=== PATIENT | male | born 1980 | race Two or more races ===

== ENCOUNTER 2020-10-30 12:37 | Outpatient (REF) | payer OTHER, SELFPAY ==
[2020-10-30 14:03] LABS: Cholesterol 228 mg/dL; HDL Cholesterol 30 mg/dL; LDL Cholesterol Calculated 132 mg/dl; Triglycerides 330 mg/dL
== END 2020-10-30 12:38 | disposition home or self-care (01) ==
LOC: HO.LAB 12:37
PROVIDERS: PCP Internal Medicine; Visit Provider Internal Medicine Cardiovascular Disease
DX: E78.5 Hyperlipidemia, unspecified (principal)
CPT/HCPCS: 36415; 80061

== ENCOUNTER → 2021-11-28 13:35 | Outpatient (REF) | payer OTHER, SELFPAY ==
--- NOTE | 2021-11-28 13:45 | CA_ITS ---
Transthoracic Echocardiogram Patient (Last, First, Middle): Albert Montes, Gender: Male Date of : 1980 Age: 41 Procedure Date: 11/28/2021 Procedure Type: Transthoracic Echocardiogram Location: OP Height: 177.8 cm Weight: 102.51 kg BSA: 2.20 m2 Heart Rate: bpm BP: 126 / 80 mmHg Purchasing Department Clerk: YR/TO Referring MD: Melchor Johns MD Batch Heat Treat Operator: Sridhar Ray MD Symptoms: E11.9 TYPE 11 DM, E78.5 HYPERLIPIDEMIA,I10 HTN R93.1 ABNORMA Study Quality: Fair ECG Rhythm: Sinus Conclusions: - Essentially normal study Findings Left Ventricle Normal left ventricular size, thickness, and systolic function. The visually estimated ejection fraction is between 55-60%. Spectral Doppler is indicative of an impaired relaxation filling pattern. E/E prime ratio is <8, consistent with normal filling pressures. Right Ventricle Normal right ventricular cavity size and systolic function. Atria Both atria are normal in size. There is no evidence of interatrial shunt. Aortic Valve The aortic valve structure and function is likely normal. There is no aortic valve stenosis. There is no aortic valve regurgitation. Mitral Valve Normal mitral valve structure and function. There is trace mitral valve regurgitation. There is no mitral valve stenosis. Pulmonic Valve The pulmonic valve was not well visualized. Tricuspid Valve Likely normal tricuspid valve structure and function. There is trace tricuspid valve regurgitation. calculated gradient across right atrium right ventricle is within normal limits. IVC is not well visualized, although appears that RV systolic pressure would be within normal limits. Great Vessels All visible segments of the aorta are normal in size. The pulmonary artery was not well visualized. Venous The inferior vena cava was not well visualized. Pericardium/Pleural There is no evidence of pericardial effusion. Prior Study Comparison no previous study in the last 5 years for comparison Measurements 2D Linear Measurements IVSd: 0.77 0.6-0.9/0.6-1.0 cm LVIDd: 4.72 3.9-5.3/4.2-5.9 cm LVIDd Index: 2.15 2.4-3.2/2.2-3.1 cm/m2 LVIDs: 3.43 2.0-3.6 cm LVPWd: 0.82 0.7-1.1 cm LA Diam: 3.60 2.7-3.8/3.0-4.0 cm LAIDs Index: 1.64 1.5-2.3 cm/m2 LV Mass: 152.18 67-162/88-224 g LV Mass Index: 69.17 43-95/49-115 g/m2 LVOT Diam: 2.30 3.0+(-)1.3 cm 2D Systolic Function EF 4C: 54.50 >55% EF 2C: 55.80 >55% EF BiP: 55.00 >55% Mitral Valve MV Pk E: 0.61 MV PK A: 0.74 MV Decel Time: 115.00 E/A: 0.80 E'Lateral: 10.30 E/E' Lat: 5.90 PHT: 34.00 MVA PHT: 6.47 Decel [place]: 5.25 Aortic Valve AoV Pk Ahsan: 1.35 AoV Mn Ahsan: 1.02 AoV VTI: 0.24 AoV Pk Grad: 7.00 Aov Mn Grad: 5.00 PIERCE Cont.VTI: 2.37 LVOT LVOT Pk Ahsan: 0.78 LVOT Mn Ahsan: 0.49 LVOT VTI: 0.13 LVOT Pk Grad: 2.00 LVOT Mn Grad: 1.00 LVOT Diam: 2.30 LVOT Area: 4.15 Diastolic Function MV Pk E: 0.61 MV Pk A: 0.74 E/A: 0.80 E' Laterial: 10.30 E/E' Lat: 5.90 Right Ventricle TAPSE (mm): 17.10 TVS' Ahsan: 10.40 Tricuspid Valve TR Pk Ahsan: 2.14 TR Pk Grad: 18.00 Great Vessels Aorta Sinus of Valsalva: 3.64 2.0-3.[address] [place]: 3.18 1.7-3.4 cm Ao Asc: 3.20 2.1-3.4 cm Ao Arch: 3.00 Updated in Other Vendor System with Status of Final Sridhar Ray MD electronically signed on 11/29/2021 2:14:58 PM with status of Final
== END ==
LOC: HO.CARD 13:35
PROVIDERS: PCP Internal Medicine; Visit Provider Internal Medicine
DX: E11.9 Type 2 diabetes mellitus without complications (principal); I10 Essential (primary) hypertension; E78.5 Hyperlipidemia, unspecified; R93.1 Abnormal findings on diagnostic imaging of heart and coronary circulation
CPT/HCPCS: 93306

== ENCOUNTER 2021-12-11 12:29 | Outpatient (REF) | payer OTHER, SELFPAY ==
[2021-12-11 13:39] LABS: Creatinine Urine 145.61 mg/dL; Microalbum/Creatinine Ratio Ur 28.1 ug/mg cr
[2021-12-11 13:49] LABS: Alanine Aminotransferase 32 U/L (0-40); Albumin Level 4.3 g/dL (3.5-5.0); Alkaline Phosphatase 59 U/L (39-117); Anion Gap 16 (12-20); Aspartate Amino Transferase 17 U/L (5-37); Bilirubin Total 0.7 mg/dL (0.0-1.0); Blood Urea Nitrogen 13 mg/dL (9-16); Calcium 9.9 mg/dL (8.4-10.2); Carbon Dioxide 22 mmol/L (22-29); Chloride 103 mmol/L (96-108); Cholesterol 210 mg/dL; Estimated Glomerular Filt Rate > 60; Glucose Fasting 242 mg/dL (60-99); HDL Cholesterol 28 mg/dL; LDL Cholesterol Calculated 115 mg/dl; Potassium 4.4 mmol/L (3.3-5.1); Sodium 137 mmol/L (135-145); Total Protein 7.7 g/dL (6.5-8.0); Triglycerides 337 mg/dL
== END 2021-12-11 12:30 | disposition home or self-care (01) ==
LOC: HO.LAB 12:29
PROVIDERS: PCP Internal Medicine; Visit Provider Internal Medicine
DX: E11.9 Type 2 diabetes mellitus without complications (principal); E78.5 Hyperlipidemia, unspecified; Z79.4 Long term (current) use of insulin
CPT/HCPCS: 36415; 80053; 80061; 82043

== ENCOUNTER → 2021-12-31 14:30 | Outpatient (REF) | payer OTHER, SELFPAY ==
--- NOTE | 2021-12-31 14:34 | ECG_ITS ---
Test Reason : R07.2 Blood Pressure : / mmHG Vent. Rate : 088 BPM Atrial Rate : 088 BPM P-R Int : 176 ms QRS Dur : 098 ms QT Int : 346 ms P-R-T Axes : 019 009 -04 degrees QTc Int : 418 ms Normal sinus rhythm with sinus arrhythmia Possible Inferior infarct (cited on or before 19-OCT-2014) Abnormal ECG When compared with ECG of 19-OCT-2014 23:54, No significant change was found Referred By: Josefina Sanchez Electronically Signed By:WICHO LAN MD
== END ==
LOC: HO.CARD 14:30
PROVIDERS: PCP Internal Medicine; Visit Provider Internal Medicine
DX: R07.2 Precordial pain (principal)
CPT/HCPCS: 93005

== ENCOUNTER → 2022-02-28 14:29 | Outpatient (BNVA) | payer OTHER, SELFPAY | PROVIDERS: PCP Internal Medicine; Referring Provider Internal Medicine; Visit Provider Internal Medicine Cardiovascular Disease | DX: R07.2 Precordial pain (principal); R00.2 Palpitations; Z79.899 Other long term (current) drug therapy | CPT/HCPCS: 99202 ==

== ENCOUNTER → 2022-03-25 09:48 | Outpatient (REF) | payer OTHER, SELFPAY ==
--- NOTE | 2022-03-25 09:52 | CA_ITS ---
Acquisition Time: 2022-03-25 10:19:09 Total Exercise Time: 00:05:55 Test Indications: CP, PALPITATIONS Medications: SEE CHART Protocol: CITLALY Max HR: 155 BPM 86% of Pred: 180 BPM Max BP: 138/098 mmHG Max Work Load: 7.0 METS Exercise stress test with exercise 5 min 55 sec of Citlaly protocol, achieving 85% MPHR with noted mild to mod sob with patient report that it feels like I am taking in too much air with request to stop, without arrythmia, with normotensive response to exercise, with baseline EKG showing inferior Q wave and T wave inversions leads III, aVF and mildly with V4-V6 which is present throughout test, without ST depressions noted. Test reviewed with Dr Ray Pt has no exercise induced ischemia, he does have decreased activity tolerance. Referred By: Sridhar Ray Overread By: OTF BAUTISTA
--- NOTE | 2022-03-25 09:52 | HM_ITS ---
* Total monitoring time 14 days and 22 hours. * Underlying rhythm is sinus. * Average rate 97/Min. Range 65 to 180/Min. About 40% the time, rate greater than 100/Min. * Rare supraventricular and ventricular ectopy with minimal burden. * During patient's symptoms of palpitations, rhythm was sinus tachycardia. MTDD
== END ==
LOC: HO.CARD 09:48
PROVIDERS: PCP Internal Medicine; Visit Provider Internal Medicine Cardiovascular Disease
DX: R07.2 Precordial pain (principal); R00.2 Palpitations
CPT/HCPCS: 93017; 93246

== ENCOUNTER → 2022-04-19 10:52 | Outpatient (BNVA) | payer OTHER, SELFPAY | PROVIDERS: PCP Internal Medicine; Visit Provider Internal Medicine Cardiovascular Disease | DX: R06.02 Shortness of breath (principal); R00.0 Tachycardia, unspecified | CPT/HCPCS: 99212 ==

== ENCOUNTER 2022-06-04 12:47 | Outpatient (REF) | payer OTHER, SELFPAY ==
[2022-06-04 14:33] LABS: Hematocrit 45.7 % (42.0-52.0); Hemoglobin 15.5 g/dl (14.0-18.0); Mean Corpuscular HGB Conc 33.9 g/dl (31.0-36.0); Mean Corpuscular Hemoglobin 29.6 pg (27.0-33.0); Mean Corpuscular Volume 87.4 fL (80.0-98.0); Mean Platelet Volume 11.2 fL (9.4-12.4); Platelet Count 232 X10*3/uL (160-400); Red Blood Count 5.23 X10*6/uL (4.60-5.80); Red Cell Distribution Width 11.9 % (11.0-16.0); White Blood Count 5.5 X10*3/uL (4.8-10.8)
[2022-06-04 14:37] LABS: INTERNATIONAL NORM RATIO 0.9 (0.9-1.1)
[2022-06-04 14:52] LABS: Anion Gap 15 (12-20); Blood Urea Nitrogen 13 mg/dL (9-16); Calcium 9.4 mg/dL (8.4-10.2); Carbon Dioxide 24 mmol/L (22-29); Chloride 102 mmol/L (96-108); Estimated Glomerular Filt Rate > 60; Glucose Random 210 mg/dL (60-115); Potassium 4.2 mmol/L (3.3-5.1); Sodium 137 mmol/L (135-145)
== END 2022-06-04 12:48 | disposition home or self-care (01) ==
LOC: HO.LAB 12:47
PROVIDERS: PCP Internal Medicine; Visit Provider Internal Medicine Cardiovascular Disease
DX: R07.2 Precordial pain (principal); E11.9 Type 2 diabetes mellitus without complications; R93.1 Abnormal findings on diagnostic imaging of heart and coronary circulation; Z79.4 Long term (current) use of insulin
CPT/HCPCS: 36415; 80048; 85027; 85610

== ENCOUNTER → 2022-08-27 10:22 | Outpatient (BNVA) | payer OTHER, SELFPAY | PROVIDERS: PCP Internal Medicine; Referring Provider Internal Medicine; Visit Provider Internal Medicine Cardiovascular Disease | DX: I25.10 Atherosclerotic heart disease of native coronary artery without angina pectoris (principal); I10 Essential (primary) hypertension; E11.9 Type 2 diabetes mellitus without complications; E78.5 Hyperlipidemia, unspecified; Z98.890 Other specified postprocedural states; Z79.4 Long term (current) use of insulin | CPT/HCPCS: 99212 ==

== ENCOUNTER 2022-10-18 12:36 | Outpatient (REF) | payer OTHER, SELFPAY ==
[2022-10-18 13:48] LABS: Cholesterol 217 mg/dL; HDL Cholesterol 31 mg/dL; LDL Cholesterol Calculated 127 mg/dl; Triglycerides 295 mg/dL
[2022-10-19 14:28] LABS: CRP High Sensitivity 1.3 mg/L
== END 2022-10-18 12:37 | disposition home or self-care (01) ==
LOC: HO.LAB 12:36
PROVIDERS: PCP Internal Medicine; Visit Provider Internal Medicine Cardiovascular Disease
DX: I25.10 Atherosclerotic heart disease of native coronary artery without angina pectoris (principal); E78.5 Hyperlipidemia, unspecified
CPT/HCPCS: 36415; 80061; 86141

== ENCOUNTER → 2022-11-28 11:04 | Outpatient (BNVA) | payer OTHER, SELFPAY | PROVIDERS: PCP Internal Medicine; Referring Provider Internal Medicine; Visit Provider Internal Medicine Cardiovascular Disease | DX: I25.10 Atherosclerotic heart disease of native coronary artery without angina pectoris (principal); I10 Essential (primary) hypertension | CPT/HCPCS: 93005; 99212 ==

== ENCOUNTER 2023-02-26 11:02 | Outpatient (REF) | payer OTHER, SELFPAY ==
[2023-02-26 11:18] LABS: MANUAL DIFF FLAG NO
[2023-02-26 11:38] LABS: Basophils Percent Auto 0.4 % (0-2); Eosinophils Absolute Auto 0.1 X10*3/uL (0.0-0.4); Eosinophils Percent Auto 1.8 % (0-4); Hematocrit 47.2 % (42.0-52.0); Hemoglobin 15.8 g/dl (14.0-18.0); Imm Gran Abs Auto 0.01 X10*3/uL (0.00-0.03); Imm Gran Pct Auto 0.1 % (0.0-0.4); Lymphocytes Absolute Auto 2.3 X10*3/uL (1.2-4.9); Lymphocytes Percent Auto 33.1 % (20-40); Mean Corpuscular HGB Conc 33.5 g/dl (31.0-36.0); Mean Corpuscular Hemoglobin 29.9 pg (27.0-33.0); Mean Corpuscular Volume 89.4 fL (80.0-98.0); Mean Platelet Volume 10.8 fL (9.4-12.4); Monocytes Absolute Auto 0.6 X10*3/uL (0.1-1.2); Monocytes Percent Auto 8.2 % (2-11); Neutrophils Absolute Auto 3.8 x10*3/uL (2.0-8.3); Neutrophils Percent Auto 56.4 % (45-73); Platelet Count 228 X10*3/uL (160-400); Red Blood Count 5.28 X10*6/uL (4.60-5.80); Red Cell Distribution Width 11.9 % (11.0-16.0); White Blood Count 6.8 X10*3/uL (4.8-10.8)
[2023-02-26 13:10] LABS: Alanine Aminotransferase 44 U/L (0-40); Albumin Level 4.3 g/dL (3.5-5.0); Alkaline Phosphatase 53 U/L (39-117); Anion Gap 15 (12-20); Aspartate Amino Transferase 23 U/L (5-37); Bilirubin Total 0.8 mg/dL (0.0-1.0); Blood Urea Nitrogen 13 mg/dL (9-16); Carbon Dioxide 25 mmol/L (22-29); Chloride 102 mmol/L (96-108); Estimated Glomerular Filt Rate > 60; Glucose Random 246 mg/dL (60-115); Potassium 3.9 mmol/L (3.3-5.1); Sodium 138 mmol/L (135-145); Total Protein 7.8 g/dL (6.5-8.0)
[2023-02-26 13:16] LABS: TSH reflex Free T4 2.01 uIU/mL (0.32-4.0); Vitamin D 25-OH Total 19.7 ng/mL (>30)
== END 2023-02-26 11:03 | disposition home or self-care (01) ==
LOC: HO.LAB 11:02
PROVIDERS: PCP Internal Medicine; Visit Provider Nurse Practitioner Family
DX: E11.9 Type 2 diabetes mellitus without complications (principal); Z79.4 Long term (current) use of insulin
CPT/HCPCS: 36415; 80053; 82043; 82306; 82607; 82746; 83036; 84443; 85025

== ENCOUNTER 2023-03-04 13:45 | Outpatient (AMB) | payer OTHER, SELFPAY ==
--- NOTE | 2023-03-04 13:51 | MHC.PC.OV ---
Vital Signs 03/04/23 13:52 Height 5 ft 10 in Weight 226 lb BMI 32.4 BP 130/82 Blood Pressure Location Lt brachial Position Sitting Intake Visit Reasons: 4m F/U DM Intake Note: Patient here for a 4 month follow up DM Personal Computer Network Engineer Required: No Accompanied by: Self / Same As Patient Allergies SHELLFISH Allergy (Unknown, Uncoded 03/04/23 13:55) ANAPHYLAXIS Medication List - Last Reconciled 03/04/23 by Josefina Sanchez MD amlodipine 10 mg PO DAILY 90 days aspirin 81 mg PO DAILY atorvastatin 40 mg PO BEDTIME ezetimibe (Zetia) 10 mg PO DAILY glipizide ER 10 mg PO BID 90 days insulin glargine (Lantus Solostar U-100 Insulin) 25 units (0.25 mL) subcut DAILY 90 days metformin ER 1,000 mg (2 x 500 mg) PO BID 90 days metoprolol succinate ER 50 mg PO DAILY pen needle, diabetic (BD Ultra-Fine Short Pen Needle) As directed Tobacco use date assessed: 10/25/22 Dental Screening Dental Screen Date: 03/04/23 Did you have a dental visit in the last 12 months?: Yes Did you have a dental problem in the last 6 months where you did not have access to dental care?: No Was dental information given to patient?: Patient has dentist HPI HPI Comments History of Present Illness Details This is a 42-year-old male with diabetes mellitus type 2 on long-term current use of insulin, hypertension, mixed hyperlipidemia and low vitamin-D that comes today for follow-up on his conditions. A1c not on goal and I will discontinue glipizide, increase Lantus and start him on Trulicity. Blood pressure stable. Last LDL was not on goal and this will be repeated. Vitamin-D is low and I will start him on supplements. Denies any chest pain or shortness of breath. [facility] Medical History (Updated 03/04/23 @ 14:11 by Josefina Sanchez MD) Class 1 obesity with body mass index (BMI) of 32.0 to 32.9 in adult Essential hypertension ARMEN (generalized anxiety disorder) Mild recurrent major depression Mixed hyperlipidemia Precordial chest pain Type 2 diabetes mellitus, with long-term current use of insulin Surgical History No pertinent past surgical history Family History Father Diabetes Mother Hypertension Social History Housing: House Alcohol intake: current Alcohol intake frequency: holidays/special occasions only Patient Tobacco Use Status: Never used Tobacco e-Cigarette/Vaping Use: Never Used Second Hand Smoke Exposure: No service: No Current occupational status: employed Current occupational exposures/hazards: No Cognitive needs: No Hearing needs: No Vision needs: Yes Questionnaire Thrive Questionnaire Date Thrive assessed: 10/25/22 ARMEN-7 AMB Questionnaire ARMEN-7 Date ARMEN - 7 assessed: 10/25/22 Source: Developed by Drs. Edwin Cleaning, Meredith Tate, Kai Patel and colleagues, with an educational bettie from [employer]. Review of Systems Const All systems reviewed & are unremarkable except as noted in HPI and below Eyes Reports no additional complaints, Denies change in vision and Denies other visual disturbances Card Denies chest pain at rest, Denies chest pain with activity, Denies edema, Denies irregular heart rhythm, Denies claudication, Denies dyspnea, Denies dyspnea on exertion, Denies orthopnea, Denies paroxysmal nocturnal dyspnea and Denies slow heart rate Resp Denies cough, Denies dyspnea and Denies dyspnea on exertion GI Denies abdominal pain, Denies change in bowel habits, Denies excessive flatus, Denies nausea and Denies vomiting Denies urinary hesitancy, Denies urinary incontinence and Denies urinary urgency Musc Denies abnormal gait, Denies atrophy, Denies deformity and Denies limited range of motion Skin/Breast Denies bleeding lesions, Denies changing lesions and Denies rash Neuro Denies abnormal gait and Denies lack of coordination Physical exam (Primary Care) Vital Signs: Last Vital Signs BP 130/82 03/04/23 13:52 BMI result Body Mass Index 32.4 Tobacco/Smoking Status: Tobacco use Status Tobacco use date assessed 10/25/22 10/25/22 10:15 Patient Tobacco Use Status Never used Tobacco 10/25/22 10:11 e-Cigarette/Vaping Use Never Used 10/25/22 10:11 Thrive Assessment: Date of Thrive Assessment Date Thrive assessed 10/25/22 10/25/22 10:15 Eyes General: appearance normal, both eyes and all related structures Eyelids: Yes eyelids normal Conjunctivae: conjunctivae normal Neck Neck: Yes normal visual inspection and Yes supple Resp Effort & Inspection: normal respiratory effort Auscultation: clear to auscultation bilaterally Cardio Jugular venous distension: no JVD Rate: regular rate Rhythm: regular rhythm Heart sounds: S1 normal heart sound present and S2 normal heart sound present Extrem General: Yes full ROM Assessment and Plan Assessment & Plan (1) Type 2 diabetes mellitus, with long-term current use of insulin: Code(s): E11.9 - Type 2 diabetes mellitus without complications; Z79.4 - termite helper (current) use of insulin Plan: Discontinue glipizide. Continue metformin. Start Trulicity. Increase Lantus from 26 units to 30 units. A1c goal is equal or less than 7%. Referred to Endocrinology. (2) Essential hypertension: Code(s): I10 - Essential (primary) hypertension Plan: Continue amlodipine. Blood pressure goal is equal or less than 130/80. (3) Mixed hyperlipidemia: Code(s): E78.2 - Mixed hyperlipidemia Plan: Continue statins. Repeat lipid panel. LDL goal is less than 70. (4) Hypovitaminosis D: Code(s): E55.9 - Vitamin D deficiency, unspecified Plan: Start vitamin-D supplements. Orders: Orders Lipid Panel Today E78.5 - Hyperlipidemia, unspecified Microalbumin, Random (w Creat) Today E11.9 - Type 2 diabetes mellitus without complications Comprehensive [place]. Panel Fast Today E11.9 - Type 2 diabetes mellitus without complications, Z79.4 - termite helper (current) use of insulin Referrals Endocrinology Referral E11.9 - Type 2 diabetes mellitus without complications, Z79.4 - care home (current) use of insulin Medications: New cholecalciferol (vitamin D3) 25 mcg PO DAILY 90 days 90 caps 1RF Changed From insulin glargine (Lantus Solostar U-100 Insulin) 25 units (0.25 mL) subcut DAILY 90 days 22.5 mL 1RF E11.9 - Type 2 diabetes mellitus without complications, Z79.4 - care home (current) use of insulin To insulin glargine (Lantus Solostar U-100 Insulin) 30 units (0.3 mL) subcut DAILY 90 days 27 mL 1RF E11.9 - Type 2 diabetes mellitus without complications, Z79.4 - termite helper (current) use of insulin Discontinued glipizide ER Discontinued Reason: Patient Completed Course 10 mg PO BID 90 days 180 tabs 1RF Coding Level of Care Code Est Pt Level 4 (99941) Diagnoses Type 2 diabetes mellitus, with long-term current use of insulin E11.9; Z79.4 Essential hypertension I10 Mixed hyperlipidemia E78.2 Hypovitaminosis D E55.9 Time Spent (min) 23
[2023-03-04 13:52] VITALS: BP 130/82; BMI 32.4
== END 2023-03-04 14:12 | disposition home or self-care (01) ==
PROVIDERS: Visit Provider Internal Medicine
DX: E11.9 Type 2 diabetes mellitus without complications (principal); Z79.4 Long term (current) use of insulin; I10 Essential (primary) hypertension; E55.9 Vitamin D deficiency, unspecified; E78.2 Mixed hyperlipidemia
CPT/HCPCS: 99214

== ENCOUNTER → 2023-04-08 08:03 | Outpatient (REF) | payer OTHER, SELFPAY ==
--- NOTE | 2023-04-08 08:05 | CA_ITS ---
Acquisition Time: 2023-04-08 08:55:11 Total Exercise Time: 00:10:00 Test Indications: CAD Medications: SEE H Protocol: CITLALY Max HR: 164 BPM 91% of Pred: 179 BPM Max BP: 170/090 mmHG Max Work Load: 11.4 METS Exercise stress test exercise 10 min of Citlaly protocol achieving 91% MPHR, without anginal symptoms, without arrhythmias, with normotensive response to exercise, without EKG changes. Referred By: Sridhar Ray Overread By: Marianela Rg
--- NOTE | 2023-04-08 08:05 | CA_ITS ---
Transthoracic Echocardiogram Patient (Last, First, Middle): Albert Montes, Gender: Male Date of : 1980 Age: 42 Procedure Date: 04/08/2023 Procedure Type: Transthoracic Echocardiogram Location: OP Height: 177.8 cm Weight: 101.61 kg BSA: 2.19 m2 Heart Rate: bpm BP: 128 / 80 mmHg Rn Clinical Trials: Referring MD: Sridhar Ray MD Material Cutter: Sridhar Ray MD Symptoms: I25.10 - Atherosclerotic heart disease of [place] coronary artery without... Study Quality: Adequate ECG Rhythm: Sinus Conclusions: - 1. Mildly reduced LV ejection fraction with LVEF of 45-50% with grade 1 diastolic dysfunction 2. Normal cardiac valvular Doppler 3. Normal RV systolic pressure 4. No pericardial effusion Findings Left Ventricle Normal left ventricular cavity size. There is normal left ventricular wall thickness. The left ventricular systolic function is mildly decreased. The visually estimated ejection fraction is between 45-50%. There is evidence of regional wall motion abnormalities. Spectral Doppler is indicative of an impaired relaxation filling pattern. E/E prime ratio is <8, consistent with normal filling pressures. Evidence suggests grade I (mild) diastolic dysfunction. Wall Motion Rest Echo Findings The inferoseptal wall, the basal inferior, and mid inferior segments are hypokinetic. All other scored wall segments showed normal motion. Right Ventricle Normal right ventricular cavity size and systolic function. Atria The left atrium is normal in size. There is no evidence of interatrial shunt. The right atrium is normal in size. Aortic Valve Normal aortic valve structure and function. There is no aortic valve stenosis. There is no aortic valve regurgitation. Mitral Valve Normal mitral valve structure and function. There is trace mitral valve regurgitation. There is no mitral valve stenosis. Pulmonic Valve The pulmonic valve is likely normal. There is trace pulmonic valve regurgitation. Tricuspid Valve Normal tricuspid valve structure. There is trace tricuspid valve regurgitation. The right ventricular systolic pressure is normal. The right ventricular systolic pressure is 23 mmHg. Normal right atrial pressure. There is no evidence of pulmonary hypertension. Great Vessels All visible segments of the aorta are normal in size. The pulmonary artery was not well visualized. There is no dilatation of the ascending aorta. Venous The inferior vena cava is normal in size and collapses greater than 50% with inspiration. Pericardium/Pleural There is no evidence of pericardial effusion. Prior Study Comparison Changes noted compared to prior study dated: 11/28/2021. LV systolic function is reduced Measurements 2D Linear Measurements IVSd: 1.08 0.6-0.9/0.6-1.0 cm LVIDd: 4.52 3.9-5.3/4.2-5.9 cm LVIDd Index: 2.06 2.4-3.2/2.2-3.1 cm/m2 LVIDs: 2.94 2.0-3.6 cm LVPWd: 1.10 0.7-1.1 cm Ao Root: 3.60 2.1-3.5 cm LA Diam: 4.10 2.7-3.8/3.0-4.0 cm LAIDs Index: 1.87 1.5-2.3 cm/m2 LV Mass: 216.75 67-162/88-224 g LV Mass Index: 98.97 43-95/49-115 g/m2 LVOT Diam: 2.20 3.0+(-)1.3 cm 2D Systolic Function EF 4C: 49.30 >55% EF 2C: 46.80 >55% EF BiP: 47.40 >55% Mitral Valve MV Pk E: 0.62 MV PK A: 0.73 MV Decel Time: 146.00 E/A: 0.80 E'Lateral: 10.30 E'Medial: 6.64 E/E' Med: 9.30 E/E' Lat: 6.00 PHT: 43.00 MVA PHT: 5.12 Decel [place]: 4.22 Aortic Valve AoV Pk Ahsan: 1.21 AoV Mn Ahsan: 0.80 AoV VTI: 0.27 AoV Pk Grad: 6.00 Aov Mn Grad: 3.00 PIERCE Cont.VTI: 2.11 LVOT LVOT Pk Ahsan: 0.71 LVOT Mn Ahsan: 0.51 LVOT VTI: 0.15 LVOT Pk Grad: 2.00 LVOT Mn Grad: 1.00 LVOT Diam: 2.20 LVOT Area: 3.80 Diastolic Function MV Pk E: 0.62 MV Pk A: 0.73 E/A: 0.80 E'Medial: 6.64 E/E' Med: 9.30 E' Laterial: 10.30 E/E' Lat: 6.00 Right Ventricle TAPSE (mm): 19.00 TVS' Ahsan: 9.00 Tricuspid Valve TR Pk Ahsan: 2.25 TR Pk Grad: 20.00 RA Press: 3.00 RVSP: 23.00 Great Vessels Aorta Ao Root-2D: 3.60 2.0-3.7 cm Ao Asc: 3.30 2.1-3.4 cm Pulmonary Valve PV Pk Ahsan: 1.08 Peak PV Grad: 5.00 Updated in Other Vendor System with Status of Final Sridhar Ray MD electronically signed on 04/09/2023 1:41:55 PM with status of Final
== END ==
LOC: HO.CARD 08:03
PROVIDERS: PCP Internal Medicine; Visit Provider Internal Medicine Cardiovascular Disease
DX: I25.10 Atherosclerotic heart disease of native coronary artery without angina pectoris (principal)
CPT/HCPCS: 93017; 93306

== ENCOUNTER → 2023-04-08 08:05 | Outpatient (BNV) | payer OTHER, SELFPAY | PROVIDERS: PCP Internal Medicine; Visit Provider Nurse Practitioner | DX: I25.10 Atherosclerotic heart disease of native coronary artery without angina pectoris (principal) | CPT/HCPCS: 93016; 93018; 93306 ==

== ENCOUNTER 2023-05-19 11:45 | Outpatient (REF) | payer OTHER, SELFPAY ==
[2023-05-19 13:14] LABS: Alanine Aminotransferase 38 U/L (0-40); Albumin Level 4.4 g/dL (3.5-5.0); Alkaline Phosphatase 62 U/L (39-117); Anion Gap 17 (12-20); Aspartate Amino Transferase 18 U/L (5-37); Bilirubin Total 0.6 mg/dL (0.0-1.0); Blood Urea Nitrogen 13 mg/dL (9-16); Calcium 9.7 mg/dL (8.4-10.2); Carbon Dioxide 23 mmol/L (22-29); Chloride 102 mmol/L (96-108); Cholesterol 125 mg/dL (<200); Estimated Glomerular Filt Rate > 60; Glucose Fasting 251 mg/dL (60-99); HDL Cholesterol 31 mg/dL (>40); LDL Cholesterol Calculated 57 mg/dL (<100); Potassium 3.9 mmol/L (3.3-5.1); Sodium 138 mmol/L (135-145); Total Protein 7.9 g/dL (6.5-8.0); Triglycerides 185 mg/dL (<150)
[2023-05-19 14:14] LABS: Creatinine Urine 131.39 mg/dL; Microalbum/Creatinine Ratio Ur 31.2 ug/mg cr (<30)
== END 2023-05-19 11:46 | disposition home or self-care (01) ==
LOC: HO.LAB 11:45
PROVIDERS: PCP Internal Medicine; Visit Provider Internal Medicine
DX: E11.9 Type 2 diabetes mellitus without complications (principal); E78.5 Hyperlipidemia, unspecified; Z79.4 Long term (current) use of insulin
CPT/HCPCS: 36415; 80053; 80061; 82043; 82570

== ENCOUNTER 2023-05-29 13:59 | Outpatient (AMB) | payer SELFPAY ==
[2023-05-29 14:25] VITALS: BP 130/82; PULSE 82; O2SAT 97; BMI 32.3
--- NOTE | 2023-05-29 14:25 | MHC.OFFVIS ---
Intake Vital Signs 05/29/23 14:25 Height 5 ft 10 in Weight 224 lb 13.944 oz BMI 32.3 BP 130/82 Blood Pressure Location Lt brachial Position Sitting Pulse 82 Pulse Oximetry (%) 97 Intake Visit Reasons: 6 mth f/up Intake Note: pt states minor left side chest discomfort feel like sometimes something is moving up and down. Excel Vba Developer Required: No Allergies SHELLFISH Allergy (Unknown, Uncoded 03/04/23 13:55) ANAPHYLAXIS Medication List - Last Reconciled 05/29/23 by Cindy Zuniga, MEHREEN-C amlodipine 10 mg PO DAILY 90 days aspirin 81 mg PO DAILY atorvastatin 40 mg PO BEDTIME dulaglutide (Trulicity) 0.75 mg (0.5 mL) subcut QWEEK 30 days ezetimibe (Zetia) 10 mg PO DAILY insulin glargine (Lantus Solostar U-100 Insulin) 35 units (0.35 mL) subcut DAILY 90 days metformin ER 1,000 mg (2 x 500 mg) PO BID 90 days metoprolol succinate ER 50 mg PO DAILY pen needle, diabetic (BD Ultra-Fine Short Pen Needle) As directed HPI 6 mth f/up HPI Details Albert is a 42-year-old male with past medical history of obesity, hypertension, hyperlipidemia, diabetes, coronary artery disease with complex RCA stenosis which is being managed medically. He presents for follow-up after recent echocardiogram and stress test. Today he reports he has been feeling well. He denies any chest discomfort at rest or with activity. He says his breathing is comfortable. No PND, orthopnea or edema. No presyncope, syncope, falls. Good activity tolerance. Taking meds as directed. COUNT INCLUDES THE [facility] Medical History Precordial chest pain ARMEN (generalized anxiety disorder) Mild recurrent major depression Class 1 obesity with body mass index (BMI) of 32.0 to 32.9 in adult Essential hypertension Type 2 diabetes mellitus, with long-term current use of insulin Mixed hyperlipidemia Surgical History No pertinent past surgical history Family History Father Diabetes Mother Hypertension Social History Housing: House Alcohol intake: current Alcohol intake frequency: holidays/special occasions only Patient Tobacco Use Status: Never used Tobacco e-Cigarette/Vaping Use: Never Used Second Hand Smoke Exposure: No service: No Current occupational status: employed Current occupational exposures/hazards: No Cognitive needs: No Hearing needs: No Vision needs: Yes Review of Systems Const All systems reviewed & are unremarkable except as noted in HPI and below ENT Denies dizziness Card Denies chest pain, Denies chest pain at rest, Denies chest pain with activity, Denies rapid heart rate, Denies pedal edema, Denies edema, Denies leg edema, Denies lightheadedness, Denies palpitations, Denies dyspnea, Denies dyspnea on exertion and Denies orthopnea Resp Denies cough, Denies dyspnea and Denies dyspnea on exertion GI Denies hematochezia and Denies change in stool character Musc Denies abnormal gait, Denies limited range of motion, Denies muscle cramps, Denies muscle weakness, Denies numbness, Denies radiating pain into limb, Denies stiffness and Denies tingling Neuro Denies abnormal gait, Denies dizziness, Denies numbness and Denies tingling Endo Denies palpitations Physical Exam Vital Signs: Last Vital Signs Pulse 82 05/29/23 14:25 BP 130/82 05/29/23 14:25 Pulse Ox 97 05/29/23 14:25 BMI result Body Mass Index 32.3 Const General: cooperative, healthy appearing, comfortable and no acute distress Orientation/consciousness: patient oriented x3 Neck Neck: Yes normal visual inspection Resp Effort & Inspection: normal respiratory effort Auscultation: clear to auscultation bilaterally, no crackles, no rales, no rhonchi and no wheezes Cardio Jugular venous distension: no JVD Rate: regular rate Rhythm: regular rhythm Heart sounds: S1 normal heart sound present, S2 normal heart sound present, no murmurs and no rubs Neuro General: patient oriented x3 Extrem General: Yes normal to inspection Psych Appearance: grossly normal Mental Status: mental status grossly normal Speech and movement: Normal speech and movement present Assessment & Plan Assessment & Plan (1) CAD (coronary artery disease): Code(s): I25.10 - Atherosclerotic heart disease of [place] coronary artery without angina pectoris Plan: History of chest discomfort, abnormal exercise stress test. He underwent cardiac catheterization 06/14/2022 showing subtotal occlusion of the right PLV at the ostium involving right PDA and RPL bifurcation with good left to right collaterals. This is being treated medically however if he continued to report anginal symptoms then bifurcation stenting of the PDA to PLV can be considered. Exercise stress test was done on 04/08/2023 with exercise 10 minutes, no anginal symptoms and no EKG changes of ischemia. Echocardiogram done 04/08/2023 showed EF 45-50%, grade 1 diastolic dysfunction. Prior known EF on echo 11/28/2021 was 55-60%. He has been maintained on amlodipine, metoprolol XL, aspirin, atorvastatin and Zetia. Labs done 05/19/2023 showed LDL 57. Today he reports no anginal symptoms and good activity tolerance. Signs and symptoms of angina reviewed with him. Cardiology follow-up in 6 months, sooner if needed. Emergency care if ever needed for concerning symptoms (2) Essential hypertension: Code(s): I10 - Essential (primary) hypertension Plan: Well controlled at this time. No med changes made (3) Mixed hyperlipidemia: Code(s): E78.2 - Mixed hyperlipidemia Plan: [place] LDL goal less than 70 in patient with CAD and diabetes. Labs 05/19/2023 showed LDL 57. Continue atorvastatin 40 mg daily and Zetia 10 mg daily. (4) Precordial chest pain: Code(s): R07.2 - Precordial pain Plan: Resolved at present Coding Level of Care Code Est Pt Level 3 (93738) Diagnoses CAD (coronary artery disease) I25.10 Essential hypertension I10 Mixed hyperlipidemia E78.2 Precordial chest pain R07.2 Time Spent (min) 24
== END 2023-05-29 14:52 | disposition home or self-care (01) ==
PROVIDERS: PCP Internal Medicine; Visit Provider Nurse Practitioner Family
DX: I25.10 Atherosclerotic heart disease of native coronary artery without angina pectoris (principal); I10 Essential (primary) hypertension; E78.2 Mixed hyperlipidemia; R07.2 Precordial pain
CPT/HCPCS: 99213

== ENCOUNTER → 2023-05-29 13:59 | Outpatient (BNVA) | payer OTHER, SELFPAY | PROVIDERS: PCP Internal Medicine; Visit Provider Nurse Practitioner Family | DX: I25.10 Atherosclerotic heart disease of native coronary artery without angina pectoris (principal); I10 Essential (primary) hypertension; R07.2 Precordial pain | CPT/HCPCS: 99212 ==

== ENCOUNTER 2023-10-30 12:52 | Outpatient (AMB) | payer OTHER, SELFPAY ==
[2023-10-30 12:54] VITALS: BP 130/86; BMI 30.6
--- NOTE | 2023-10-30 12:54 | MHC.PC.OV ---
Vital Signs 10/30/23 12:54 Height 5 ft 10 in Weight 213 lb BMI 30.6 BP 130/86 Blood Pressure Location Lt brachial Position Sitting Intake Visit Reasons: PE Intake Note: Patient here for a physical exam Community Engagement Representative Required: No Accompanied by: Self / Same As Patient Allergies SHELLFISH Allergy (Unknown, Uncoded 10/30/23 12:57) ANAPHYLAXIS Medication List - Last Reconciled 10/30/23 by Josefina Sanchez MD amlodipine 10 mg PO DAILY 90 days aspirin 81 mg PO DAILY atorvastatin 40 mg PO BEDTIME blood sugar diagnostic (FreeStyle Lite Strips) Use 1 test strip twice a day dulaglutide (Trulicity) 0.75 mg (0.5 mL) subcut QWEEK 30 days ezetimibe (Zetia) 10 mg PO DAILY insulin glargine (Lantus Solostar U-100 Insulin) 35 units (0.35 mL) subcut DAILY 90 days metformin ER 1,000 mg (2 x 500 mg) PO BID 90 days metoprolol succinate ER 50 mg PO DAILY pen needle, diabetic (BD Ultra-Fine Short Pen Needle) As directed Tobacco use date assessed: 10/30/23 Dental Screening Dental Screen Date: 10/30/23 Did you have a dental visit in the last 12 months?: No Did you have a dental problem in the last 6 months where you did not have access to dental care?: No Was dental information given to patient?: Patient has dentist HPI HPI Comments History of Present Illness Details This is a 43-year-old male with diabetes mellitus type 2 on long-term current use of insulin that comes for his physical exam. A1c elevated but he admits he was out of insurance and just restarted Trulicity about a month ago. I will increase Trulicity and decrease insulin. Last diabetic eye exam was 2023 as per patient. No chest pain or shortness of breath. [facility] Medical History (Updated 10/30/23 @ 13:22 by Josefina Sanchez MD) Precordial chest pain ARMEN (generalized anxiety disorder) Mild recurrent major depression Class 1 obesity with body mass index (BMI) of 32.0 to 32.9 in adult Essential hypertension Type 2 diabetes mellitus, with long-term current use of insulin Mixed hyperlipidemia Surgical History No pertinent past surgical history Family History Father Diabetes Mother Hypertension Social History Housing: House Alcohol intake: former Patient Tobacco Use Status: Never used Tobacco e-Cigarette/Vaping Use: Never Used Second Hand Smoke Exposure: No service: No Current occupational status: employed Current occupational exposures/hazards: No Cognitive needs: No Hearing needs: No Vision needs: Yes Questionnaire PHQ-9 Over the last 2 weeks, how often have you been bothered by any of the following problems? 1. Little interest or pleasure in doing things: not at all 2. Feeling down, depressed, or hopeless: not at all 3. Trouble falling or staying asleep, or sleeping too much: not at all 4. Feeling tired or having little energy: not at all 5. Poor appetite or overeating: not at all 6. Feeling bad about yourself - or that you are a failure or have let yourself or your family down: not at all 7. Trouble concentrating on things, such as reading the newspaper or watching television: not at all 8. Moving or speaking so slowly that other people could have noticed. Or the opposite - being so fidgety or restless that you have been moving around a lot more than usual: not at all 9. Thoughts that you would be better off or of hurting yourself in some way: not at all Total score: 0 Depression Screening Interpretation: Negative Depression Screening Done: Yes 83835 - PHQ-9 Billing: Yes Source: Developed by Drs. Edwin Cleaning, Meredith Tate, Kai Patel and colleagues, with an educational bettie from [employer]. Thrive Questionnaire Date Thrive assessed: 10/30/23 I am a: Patient What is your living situation today?: I have a steady place to live Within the past 12 months, did the food you bought not last and you didn't have the money to get more?: Never true Within the past 12 months, did you worry whether your food would run out before you got money to buy more?: Never true Do you have trouble paying for medicines?: No Do you have trouble getting transportation to medical appointments?: No Do you have trouble paying your heating and electricity bill?: No Do you have trouble taking care of your child, family member or friend?: No Do you have trouble with day-to-day activities such as bathing, preparing meals, shopping, managing finances, etc.?: No Are you currently unemployed and looking for a job?: No Are you interested in more education?: No Please select the resources that you would like help with: None Currently or been in a relationship where the following occur: no concerns reported THRIVE Score: 0 AUDIT C Alcohol Use Questionnaire (AUDIT-C) 1. How often do you have a drink containing alcohol?: Never Total Score: 0 Score Reviewed/Action Taken: No ARMEN-7 AMB Questionnaire ARMEN-7 Date ARMEN - 7 assessed: 10/30/23 Feeling nervous, anxious, or on edge: 0 = Not at all Not being able to stop or control worryin = Not at all Worrying too much about different things: 0 = Not at all Trouble relaxin = Not at all Being so restless that it is hard to sit still: 0 = Not at all Becoming easily annoyed or irritable: 0 = Not at all Feeling afraid as if something awful might happen: 0 = Not at all Total ARMEN-7 score (0-4 normal; 5-9 mild; 10-14 moderate; 15-21 severe): 0 Source: Developed by Drs. Edwin Cleaning, Meredith Tate, Kai Patel and colleagues, with an educational bettie from [employer]. ARMEN-7 Assessment Billing ARMEN-7 Assessment Tool: ARMEN-7 Assessment 91529 Review of Systems Const All systems reviewed & are unremarkable except as noted in HPI and below Eyes Reports no additional complaints, Denies change in vision and Denies other visual disturbances Card Denies chest pain at rest, Denies chest pain with activity, Denies edema, Denies irregular heart rhythm, Denies claudication, Denies dyspnea, Denies dyspnea on exertion, Denies orthopnea, Denies paroxysmal nocturnal dyspnea and Denies slow heart rate Resp Denies cough, Denies dyspnea and Denies dyspnea on exertion GI Denies abdominal pain, Denies change in bowel habits, Denies excessive flatus, Denies nausea and Denies vomiting Denies urinary hesitancy, Denies urinary incontinence and Denies urinary urgency Musc Denies abnormal gait, Denies atrophy, Denies deformity and Denies limited range of motion Skin/Breast Denies bleeding lesions, Denies changing lesions and Denies rash Neuro Denies abnormal gait, Denies behavioral changes, Denies confusion and Denies lack of coordination Psych Denies behavioral changes and Denies confusion Physical exam (Primary Care) Vital Signs: Last Vital Signs BP 130/86 10/30/23 12:54 BMI result Body Mass Index 30.6 Tobacco/Smoking Status: Tobacco use Status Tobacco use date assessed 10/30/23 10/30/23 13:03 Patient Tobacco Use Status Never used Tobacco 10/30/23 13:03 e-Cigarette/Vaping Use Never Used 10/30/23 13:03 PHQ-9: PHQ-9 Score PHQ-9: Total score 0 10/30/23 13:07 Depression Screening Interpretation: Negative Thrive Assessment: Date of Thrive Assessment Date Thrive assessed 10/30/23 10/30/23 13:03 Currently or been in a relationship where the following occur: no concerns reported Const General: No confusion Orientation/consciousness: patient oriented x3 and No confusion HENMT Head: Yes normal to inspection, Yes normocephalic and Yes atraumatic Ears: external ears normal Eyes General: appearance normal, both eyes and all related structures Eyelids: Yes eyelids normal Conjunctivae: conjunctivae normal Neck Neck: Yes normal visual inspection and Yes supple Resp Effort & Inspection: normal respiratory effort Auscultation: clear to auscultation bilaterally Cardio Jugular venous distension: no JVD Rate: regular rate Rhythm: regular rhythm Heart sounds: S1 normal heart sound present and S2 normal heart sound present GI Inspection: Yes normal to inspection Palpation (GI): Soft to palpation and nontender Auscultation: normal bowel sounds Skin General skin exam: no rashes or lesions noted Neuro General: patient oriented x3, no focal motor deficits and No confusion Extrem General: Yes full ROM Psych Appearance: grossly normal Results AMB Hemoglobin A1c AMB Hemoglobin A1c 9.5 % Last Edit by ROME Cueva on 10/30/23 13:04 Results Reviewed Results Reviewed: Laboratory Last Values Hgb A1c (Clinic) 9.5 % (4.0-6.0) H 10/30/23 12:53 Assessment and Plan Assessment & Plan (1) Physical exam: Code(s): Z00.00 - Encounter for general adult medical examination without abnormal findings Plan: Repeat in a year. (2) Type 2 diabetes mellitus, with long-term current use of insulin: Code(s): E11.9 - Type 2 diabetes mellitus without complications; Z79.4 - residential (current) use of insulin Plan: Continue metformin. Increase Trulicity. Decrease Lantus from 35 units to 10 units. A1c goal is equal or less than 7%. Orders: Orders AMB Hemoglobin A1c Today E11.9 - Type 2 diabetes mellitus without complications, Z79.4 - residential (current) use of insulin Lipid Panel Today E11.9 - Type 2 diabetes mellitus without complications, E78.5 - Hyperlipidemia, unspecified, Z79.4 - intermediate frame tender (current) use of insulin Microalbumin, Random (w Creat) Today E11.9 - Type 2 diabetes mellitus without complications, Z79.4 - residential (current) use of insulin Comprehensive [place]. Panel Fast Today E11.9 - Type 2 diabetes mellitus without complications, Z79.4 - residential (current) use of insulin Medications: New dulaglutide (Trulicity) 1.5 mg (0.5 mL) subcut QWEEK 90 days 6.5 mL 1RF E11.9 - Type 2 diabetes mellitus without complications, Z79.4 - intermediate frame tender (current) use of insulin Changed From insulin glargine (Lantus Solostar U-100 Insulin) 35 units (0.35 mL) subcut DAILY 90 days 31.5 mL 1RF E11.9 - Type 2 diabetes mellitus without complications, Z79.4 - intermediate frame tender (current) use of insulin To insulin glargine (Lantus Solostar U-100 Insulin) 10 units (0.1 mL) subcut DAILY 90 days 9 mL 1RF E11.9 - Type 2 diabetes mellitus without complications, Z79.4 - intermediate frame tender (current) use of insulin Discontinued dulaglutide (Trulicity) Discontinued Reason: Doctor's Order 0.75 mg (0.5 mL) subcut QWEEK 30 days 2.5 mL 6RF E11.9 - Type 2 diabetes mellitus without complications, Z79.4 - residential (current) use of insulin Coding Level of Care Code Est Pt Prev Care 40-64y(02154) Diagnoses Physical exam Z00.00 Type 2 diabetes mellitus, with long-term current use of insulin E11.9; Z79.4 Additional Codes ARMEN-7 Assessment Billing - ARMEN-7 Assessment Tool: ARMEN-7 Assessment 34035 ([id number]) Time Spent (min) 32
== END 2023-10-30 13:22 | disposition home or self-care (01) ==
PROVIDERS: Visit Provider Internal Medicine
DX: Z00.00 Encounter for general adult medical examination without abnormal findings (principal); E11.9 Type 2 diabetes mellitus without complications; Z79.4 Long term (current) use of insulin
CPT/HCPCS: 83036; 99396

== ENCOUNTER 2023-12-09 14:37 | Outpatient (AMB) | payer OTHER, SELFPAY ==
[2023-12-09 14:52] VITALS: BP 120/80; PULSE 82; BMI 31.6
--- NOTE | 2023-12-09 14:52 | A.OFFVIS_ITS ---
Intake Vital Signs 12/09/23 14:52 Height 5 ft 10 in Weight 220 lb 7.396 oz BMI 31.6 BP 120/80 Blood Pressure Location Lt brachial Position Sitting Pulse 82 Intake Visit Reasons: 6 month follow up Intake Note: 6 month follow-up with ekg c/o some palpitations at times Information Technology Instructor Required: No Allergies SHELLFISH Allergy (Unknown, Uncoded 10/30/23 12:57) ANAPHYLAXIS Medication List - Last Reconciled 12/09/23 by Sridhar Ray MD amlodipine 10 mg PO DAILY 90 days aspirin 81 mg PO DAILY atorvastatin 40 mg PO BEDTIME blood sugar diagnostic (FreeStyle Lite Strips) Use 1 test strip twice a day dulaglutide (Trulicity) 1.5 mg (0.5 mL) subcut QWEEK 90 days ezetimibe (Zetia) 10 mg PO DAILY insulin glargine (Lantus Solostar U-100 Insulin) 10 units (0.1 mL) subcut DAILY 90 days metformin ER 1,000 mg (2 x 500 mg) PO BID 90 days metoprolol succinate ER 50 mg PO DAILY pen needle, diabetic (BD Ultra-Fine Short Pen Needle) As directed HPI HPI Comments History of Present Illness Details Albert comes for follow-up. He said he feels well. He denies any cardiac symptoms. Denies any exertional chest pain shortness of breath. Occasionally at rest he feels point he chest pain in the left ribcage area which she thinks might be related to stress. He denies any heart failure symptoms. Denies any lightheadedness, syncope. Takes all his medications regularly. No side effects to the medicines. He participate in regular physical activity. [facility] Medical History Precordial chest pain ARMEN (generalized anxiety disorder) Mild recurrent major depression Class 1 obesity with body mass index (BMI) of 32.0 to 32.9 in adult Essential hypertension Type 2 diabetes mellitus, with long-term current use of insulin Mixed hyperlipidemia Surgical History No pertinent past surgical history Family History Father Diabetes Mother Hypertension Social History Housing: House Alcohol intake: former Patient Tobacco Use Status: Never used Tobacco e-Cigarette/Vaping Use: Never Used Second Hand Smoke Exposure: No service: No Current occupational status: employed Current occupational exposures/hazards: No Cognitive needs: No Hearing needs: No Vision needs: Yes Review of Systems Const Denies chills, Denies fatigue, Denies fever(s), Denies frequent falls, Denies weakness, Denies weight gain and Denies weight loss ENT Denies dizziness Card Denies chest pain, Denies leg edema, Denies lightheadedness, Denies palpitations, Denies dyspnea, Denies dyspnea on exertion, Denies orthopnea and Denies other (loss of consciousness) Resp Denies cough, Denies dyspnea and Denies dyspnea on exertion GI Denies hematochezia and Denies change in stool character Musc Denies abnormal gait, Denies muscle weakness, Denies numbness, Denies radiating pain into limb and Denies tingling Neuro Denies abnormal gait, Denies dizziness, Denies frequent falls, Denies numbness, Denies tingling and Denies weakness Endo Denies fatigue and Denies palpitations Physical Exam Vital Signs: Last Vital Signs Pulse 82 12/09/23 14:52 BP 120/80 12/09/23 14:52 BMI result Body Mass Index 31.6 Const General: cooperative, healthy appearing, comfortable and no acute distress Orientation/consciousness: patient oriented x3 Neck Neck: Yes normal visual inspection Resp Effort & Inspection: normal respiratory effort Auscultation: clear to auscultation bilaterally, no crackles, no rales, no rhonchi and no wheezes Cardio Jugular venous distension: no JVD Rate: regular rate Rhythm: regular rhythm Heart sounds: S1 normal heart sound present, S2 normal heart sound present, no murmurs and no rubs Neuro General: patient oriented x3 Extrem General: Yes normal to inspection Psych Appearance: grossly normal Mental Status: mental status grossly normal Speech and movement: Normal speech and movement present Office Procedures EKG Details: EKG shows normal sinus rhythm with inferior Q-waves [id number], Complete Assessment & Plan Assessment & Plan (1) CAD (coronary artery disease): Code(s): I25.10 - Atherosclerotic heart disease of [place] coronary artery without angina pectoris Plan: CAD with complex RCA disease without any symptoms of angina at this point time. He denies any exertional symptoms with his active lifestyle. Continue current dual antianginal therapy with amlodipine and metoprolol. Continue low-dose aspirin therapy for life. Continue high-intensity statin therapy in combination with ezetimibe with target goal LDL less than 70 mg/dL. Advised lipid panel in the next 5 months. Will follow-up echocardiogram in 5 months as well to assess for worsening LV systolic function. Continue aggressive management diabetes goal hemoglobin A1c less than 7% pursued through your office. He is encouraged to continue to participate in physical activity as tolerated advised to call me with any new symptoms. Follow up in the clinic in 6 months time, sooner p.r.n.. Thank you for allowing me to partake in his care Orders: Orders Lipid Panel 6 Months I25.10 - Atherosclerotic heart disease of [place] coronary artery without angina pectoris Coding Level of Care Code Est Pt Level 4 (23253) Diagnoses CAD (coronary artery disease) I25.10 CPT Codes EKG - CPT: 71473-[id number], Complete ([id number])
== END 2023-12-09 15:39 | disposition home or self-care (01) ==
PROVIDERS: PCP Internal Medicine; Visit Provider Internal Medicine Cardiovascular Disease
DX: I25.10 Atherosclerotic heart disease of native coronary artery without angina pectoris (principal)
CPT/HCPCS: 93010; 99214

== ENCOUNTER → 2023-12-09 14:37 | Outpatient (BNVA) | payer OTHER, SELFPAY | PROVIDERS: PCP Internal Medicine; Visit Provider Internal Medicine Cardiovascular Disease | DX: I25.10 Atherosclerotic heart disease of native coronary artery without angina pectoris (principal); R94.31 Abnormal electrocardiogram [ECG] [EKG] | CPT/HCPCS: 93005; 99212 ==